=== PATIENT | female | born 1945 ===

== ENCOUNTER 2019-07-28 16:12 | Inpatient (IN) ==
[2019-07-28] MEDS ORDERED: Isovue-370 500 ML BOTTLE IVP ONE (16:43)
[2019-07-28 17:26] LABS: Basophils # 0.2 K/mcL (0.0-0.2); Basophils % 1.3 %; Eosinophils % 0.2 %; Hematocrit 36.2 % (35.3-44.9); Hemoglobin 11.4 g/dL (11.5-15.4); Immature Granulocytes % 0.8 % (0-4); Lymphocytes # 2.8 K/mcL (0.6-4.6); Lymphocytes % 20.9 %; Mean Corpuscular HGB Conc 31.5 g/dL (31.6-35.5); Mean Corpuscular Hemoglobin 29.7 pg (28.0-33.3); Mean Corpuscular Volume 94.3 fL (83.0-100.0); Mean Platelet Volume 10.4 fL (9.4-12.4); Monocytes # 0.2 K/mcL (0.0-1.3); Monocytes % 1.8 %; Neutrophils # 9.9 K/mcL (1.6-8.9); Platelet Count 265 K/mcL (140-400); Red Blood Count 3.84 M/mcL (3.82-4.97); Red Cell Distribution Width 13.8 % (11.5-14.5); White Blood Count 13.1 K/mcL (4.3-11.1)
[2019-07-28] MEDS ORDERED: *HR* FentaNYL (PF) 100 MCG/2 ML VIAL IVP ONE (17:30)
[2019-07-28] MEDS ORDERED: 0.9 % Sodium Chloride 1,000 ML IVC ONE ×2 (17:31→18:45)
--- NOTE | 2019-07-28 17:38 | Emergency Department Note ---
Disposition Clinical Impression: Pancreatitis Qualifiers: Chronicity: acute Pancreatitis type: unspecified pancreatitis type Acute pancreatitis complication: unspecified Qualified Code(s): K85.90 - Acute pancreatitis without necrosis or infection, unspecified Disposition: Still a Patient Condition: Good Referrals: Chelsy Whitten MD [Primary Care Provider] - Forms: ED Satisfaction Letter, Work/School Release Time of Disposition: 19:32 Abdominal Pain HPI - General Chief Complaint: ED Abdominal Pain Stated Complaint: abd pain,nausea Time Seen by Provider: 07/28/19 16:24 Source: patient Mode of arrival: ambulatory Limitations: no limitations Nursing Notes Reviewed: Yes Vital Signs Reviewed: Yes - History of Present Illness HPI Narrative: Patient is 74 yo woman who developed increasing abdominal pain, chest pain, nausea and vomiting after ERCP yesterday 07/27/19 for gallstone removal. She denies fever, SOB, AMS. She endorses shoulder pain that she said is the same as she had during previous endoscopies. Patient has been taking prescribed percocet, but states it is not helping. PMH significant for breast cancer (~11 years ago), hypothyroidism. She has no history of blood clots. Allergies include latex. Pain Scale: 6 - Related Data Home Medications Medication Instructions Recorded Confirmed Indomethacin 25 mg PO BID 12/10/15 07/28/19 Levothyroxine [Synthroid] 100 mcg PO DAILY 12/10/15 07/28/19 Claritin 1 tab PO DAILY 07/28/19 07/28/19 Previous Rx's Medication Instructions Recorded Ibuprofen [Motrin] 400 mg PO Q6HR PRN #15 tablet 12/10/15 Allergies Allergy/AdvReac Type Severity Reaction Status Date / Time latex Allergy Hives Verified 07/17/15 08:28 All systems ED: reviewed and negative except as stated. Cardiovascular: Reports: chest pain Gastrointestinal: Reports: abdominal pain, nausea, vomiting Musculoskeletal: Reports: other (Bilateral shoulder pain) Abdominal Pain PMH - Past Medical History Medical history: Reports: arthritis, cancer, thyroid disease Reports: recurrent abdominal pain Female Surgical History: Reports: other (ERCP) Psychiatric history: Reports: no psych history - Social History Smoking status: Never smoker Alcohol use: Reports: occasionally Drug use: Reports: none Physical Exam PE Gen: uncomfortable, AOx3 HEENT: No erythema or edema in oropharynx, no lymphadenopathy. No exudate, blood or ulceration. No crepitus on palpation plus auscultation. Pupils equal and reactive. Cardio: Regular rate and rhythm, no murmur, no peripheral edema, no cyanosis, good perfusion to all extremities. Resp: Breath sounds equal bilaterally, no wheeze or cough GI: Abdomen diffusely tender to palpation in all quadrants, soft, nondistended : No suprapubic distention or tenderness MSK: Normal ROM, no joint erythema or edema Neuro: CNI-XII intact, sensation and strength intact Psych: appropriate affect - General Limitations: no limitations General appearance: alert Course Course Narrative: DDx includes pancreatitis, [place], esophageal perforation, pneumomediastinum, gastric perforation, cholecystitis, pneumothorax. VS stable, WNL. Lipase >1800, amylase also elevated. Patient made NPO, given 2L IVF and fentanyl for pain control. Patient declined antiemetics. EKG with sinus bradycardia 49, which is similar to EKG 12/03/2015 (HR 54). Troponin negative. CXR negative for free air, effusion, widened mediastinum, pnuemothorax. WBC mildly elevated. Plan to admit patient for acute pancreatitis s/p ERCP. CT abdomen/pelvis pending. - Reevaluation(s) Reevaluation #1: Spoke with patient about elevated lipase, pending CT scan and upcoming shift change. Plan to admit; patient signed out to Dr. Mandujano. Time: 19:07 Vital Signs Temperature 98.0 F 07/28/19 16:17 Pulse Rate 53 07/28/19 16:17 Respiratory Rate 18 07/28/19 16:17 Blood Pressure 118/55 07/28/19 16:17 O2 Sat by Pulse Oximetry 97 07/28/19 16:17 Temperature 98.0 F 07/28/19 16:17 Pulse Rate 53 07/28/19 16:17 Respiratory Rate 18 07/28/19 16:17 Blood Pressure 118/55 07/28/19 16:17 O2 Sat by Pulse Oximetry 97 07/28/19 16:17 Oxygen Delivery Oxygen Delivery Room Air Abdominal Pain - MDM Narrative Medical decision making narrative: See course. - Medical Records Medical records reviewed: Yes I reviewed the patient's medical records. - Lab Data Lab results reviewed: Yes I reviewed the patient's lab results. Result diagrams: 07/28/19 17:07 07/28/19 17:07 Lab Results 07/28/19 07/28/19 07/28/19 Range/Units 17:07 17:07 17:07 WBC 13.1 H (4.3-11.1) K/mcL RBC 3.84 (3.82-4.97) M/mcL Hgb 11.4 L (11.5-15.4) g/dL Hct 36.2 (35.3-44.9) % MCV 94.3 (83.0-100.0) fL MCH 29.7 (28.0-33.3) pg MCHC 31.5 L (31.6-35.5) g/dL RDW 13.8 (11.5-14.5) % Plt Count 265 (140-400) K/mcL MPV 10.4 (9.4-12.4) fL Immature Gran % 0.8 (0-4) % Seg Neutrophils % 75.0 % Lymphocytes % 20.9 % Monocytes % 1.8 % Eosinophils % 0.2 % Basophils % 1.3 % Neutrophils # 9.9 H (1.6-8.9) K/mcL Lymphocytes # 2.8 (0.6-4.6) K/mcL Monocytes # 0.2 (0.0-1.3) K/mcL Eosinophils # 0.0 (0.0-0.6) K/mcL Basophils # 0.2 (0.0-0.2) K/mcL Sodium 141 (136-145) mEq/L Potassium 3.1 L (3.5-5.1) mEq/L Chloride 104 (98-107) mEq/L Carbon Dioxide 28 (23-29) mEq/L BUN 17 (8-23) mg/dL Creatinine 0.89 (0.60-1.20) mg/dL Est GFR ( Amer) > 60 (> 60) Est GFR (Non-Af Amer) > 60 (> 60) BUN/Creatinine Ratio 19 (6-26) Glucose 85 (70-105) mg/dL Calculated Osmolality 293 (280-300) Calcium 9.1 (8.6-10.3) mg/dL Total Bilirubin 0.5 (0.3-1.0) mg/dL AST 138 H (13-39) Units/L ALT 169 H (7-52) Units/L Alkaline Phosphatase 98 (34-104) Units/L Troponin I < 0.03 (< 0.04) ng/mL Serum Total Protein 6.1 L (6.4-8.9) g/dL Albumin 3.8 (3.5-5.7) g/dL Globulin 2.3 L (2.4-3.5) g/dL Albumin/Globulin Ratio 1.7 (1.1-2.2) Amylase (29-103) Units/L Lipase > 1800 H (11-82) Units/L / Range/Units 17:07 WBC (4.3-11.1) K/mcL RBC (3.82-4.97) M/mcL Hgb (11.5-15.4) g/dL Hct (35.3-44.9) % MCV (83.0-100.0) fL MCH (28.0-33.3) pg MCHC (31.6-35.5) g/dL RDW (11.5-14.5) % Plt Count (140-400) K/mcL MPV (9.4-12.4) fL Immature Gran % (0-4) % Seg Neutrophils % % Lymphocytes % % Monocytes % % Eosinophils % % Basophils % % Neutrophils # (1.6-8.9) K/mcL Lymphocytes # (0.6-4.6) K/mcL Monocytes # (0.0-1.3) K/mcL Eosinophils # (0.0-0.6) K/mcL Basophils # (0.0-0.2) K/mcL Sodium (136-145) mEq/L Potassium (3.5-5.1) mEq/L Chloride (98-107) mEq/L Carbon Dioxide (23-29) mEq/L BUN (8-23) mg/dL Creatinine (0.60-1.20) mg/dL Est GFR ( Amer) (> 60) Est GFR (Non-Af Amer) (> 60) BUN/Creatinine Ratio (6-26) Glucose (70-105) mg/dL Calculated Osmolality (280-300) Calcium (8.6-10.3) mg/dL Total Bilirubin (0.3-1.0) mg/dL AST (13-39) Units/L ALT (7-52) Units/L Alkaline Phosphatase (34-104) Units/L Troponin I (< 0.04) ng/mL Serum Total Protein (6.4-8.9) g/dL Albumin (3.5-5.7) g/dL Globulin (2.4-3.5) g/dL Albumin/Globulin Ratio (1.1-2.2) Amylase 1823 H (29-103) Units/L Lipase (11-82) Units/L - EKG Data EKG attestation: Yes I reviewed and interpreted this EKG. EKG shows normal: sinus rhythm Rate: bradycardia Interpretation: no acute changes, unchanged when compared to prior tracing (date) (12/03/15 EKG) Attestation Statement - Attestation Attestation: I, Lamin Arellano, examined this patient and my medical decision-making was reviewed with the AUTO STRIPER/PA/Advanced Practice Nurse/Resident Physician. I agree with the documented findings, disposition and treatment plan as described except to the extent set forth below. 74 yo female presents emergency Department with concerns of abdominal pain, nausea, vomiting. Patient had an ERCP for removal of common bile duct stones within the past 2-3 days. Patient has since had increasing nausea, vomiting and epigastric abdominal pain. She also states that she had dilation of the esophagus at the same time. Abdomen is tender to palpation in the generalized abdomen with mild guarding. Patient has an elevated lipase on laboratory testing. This is likely pancreatitis associated with her ERCP. CT of the abdomen and pelvis is still pending for further evaluation of possible perforation. Patient care was transferred to Dr. Mandujano pending imaging, reevaluation and disposition.
[2019-07-28 18:18] LABS: Alanine Aminotransferase 169 Units/L (7-52); Albumin 3.8 g/dL (3.5-5.7); Albumin/Globulin Ratio 1.7 (1.1-2.2); Alkaline Phosphatase 98 Units/L (34-104); Aspartate Amino Transferase 138 Units/L (13-39); BUN/Creatinine Ratio 19 (6-26); Bilirubin,Total 0.5 mg/dL (0.3-1.0); Blood Urea Nitrogen 17 mg/dL (8-23); Calcium 9.1 mg/dL (8.6-10.3); Carbon Dioxide 28 mEq/L (23-29); Chloride 104 mEq/L (98-107); Globulin 2.3 g/dL (2.4-3.5); Glucose 85 mg/dL (70-105); Lipase > 1800 Units/L (11-82); Osmolality,Calculated 293 (280-300); Potassium 3.1 mEq/L (3.5-5.1); Sodium 141 mEq/L (136-145); Total Protein 6.1 g/dL (6.4-8.9); eGFR For African Americans > 60 (> 60); eGFR For Non-African Americans > 60 (> 60)
--- NOTE | 2019-07-28 20:43 | Emergency Department Note ---
Disposition Clinical Impression: Pancreatitis Qualifiers: Chronicity: acute Pancreatitis type: unspecified pancreatitis type Acute pancreatitis complication: unspecified Qualified Code(s): K85.90 - Acute pancreatitis without necrosis or infection, unspecified Disposition: Admitted As Inpatient Condition: Fair Referrals: Chelsy Whitten MD [Primary Care Provider] - Forms: ED Satisfaction Letter, Work/School Release Time of Disposition: 21:08 General Adult HPI - General Chief complaint: ED Abdominal Pain Stated complaint: abd pain,nausea Time Seen by Provider: 07/28/19 16:24 Source: patient Mode of arrival: ambulatory Limitations: no limitations - History of Present Illness Pain Scale: 6 - Related Data Home Medications Medication Instructions Recorded Confirmed Indomethacin 25 mg PO BID 12/10/15 07/28/19 Levothyroxine [Synthroid] 100 mcg PO DAILY 12/10/15 07/28/19 Claritin 1 tab PO DAILY 07/28/19 07/28/19 Previous Rx's Medication Instructions Recorded Ibuprofen [Motrin] 400 mg PO Q6HR PRN #15 tablet 12/10/15 Allergies Allergy/AdvReac Type Severity Reaction Status Date / Time latex Allergy Hives Verified 07/17/15 08:28 Cardiovascular: Reports: chest pain Gastrointestinal: Reports: abdominal pain, nausea, vomiting Musculoskeletal: Reports: other (Bilateral shoulder pain) Past Medical History - Past Medical History Medical history: Reports: arthritis, cancer, thyroid disease Surgical history: Reports: breast surgery, cataract Psychiatric history: Reports: no psych history - Social History Smoking Status: Never smoker Smokeless Tobacco Status: No Alcohol use: Reports: occasionally Drug use: Reports: none Physical Exam - General Limitations: no limitations General appearance: alert Course Vital Signs Temperature 98.0 F 07/28/19 16:17 Pulse Rate 53 07/28/19 16:17 Respiratory Rate 18 07/28/19 16:17 Blood Pressure 118/55 07/28/19 16:17 O2 Sat by Pulse Oximetry 97 07/28/19 16:17 Temperature 98.0 F 07/28/19 16:17 Pulse Rate 53 07/28/19 16:17 Respiratory Rate 18 07/28/19 16:17 Blood Pressure 118/55 07/28/19 16:17 O2 Sat by Pulse Oximetry 97 07/28/19 16:17 Oxygen Delivery Oxygen Delivery Room Air Medical Decision Making - MDM Narrative Medical decision making narrative: Patient was turned over to me by Dr. Arellano. Patient is resting comfortably here in the emergency room at evaluation at 2039. The patient at this point in time has minimal tenderness in the epigastric area on examination. No other masses or guarding. I do agree to the note that was placed prior to this. The odilon preciado's CAT scan showed evidence of pancreatitis, acute cholecystitis. However given the patient has pancreatitis, there could be inflammation around the gallbladder causing the acute cholecystitis. The patient at this point time did have IV antibiotics given the patient however is not septic. The patient at this point in time did have case discussed with hospitalist and the patient is going to be admitted. Hospitalist wanted me to contact general surgery. The patient has seen Dr. cramer in the past, her surgeon that she was supposed to have take out her gallbladder does not come here to [place]. Final impression Acute pancreatitis - Lab Data Result diagrams: 07/28/19 17:07 07/28/19 17:07 Lab Results 07/28/19 07/28/19 07/28/19 Range/Units 17:07 17:07 17:07 WBC 13.1 H (4.3-11.1) K/mcL RBC 3.84 (3.82-4.97) M/mcL Hgb 11.4 L (11.5-15.4) g/dL Hct 36.2 (35.3-44.9) % MCV 94.3 (83.0-100.0) fL MCH 29.7 (28.0-33.3) pg MCHC 31.5 L (31.6-35.5) g/dL RDW 13.8 (11.5-14.5) % Plt Count 265 (140-400) K/mcL MPV 10.4 (9.4-12.4) fL Immature Gran % 0.8 (0-4) % Seg Neutrophils % 75.0 % Lymphocytes % 20.9 % Monocytes % 1.8 % Eosinophils % 0.2 % Basophils % 1.3 % Neutrophils # 9.9 H (1.6-8.9) K/mcL Lymphocytes # 2.8 (0.6-4.6) K/mcL Monocytes # 0.2 (0.0-1.3) K/mcL Eosinophils # 0.0 (0.0-0.6) K/mcL Basophils # 0.2 (0.0-0.2) K/mcL Sodium 141 (136-145) mEq/L Potassium 3.1 L (3.5-5.1) mEq/L Chloride 104 (98-107) mEq/L Carbon Dioxide 28 (23-29) mEq/L BUN 17 (8-23) mg/dL Creatinine 0.89 (0.60-1.20) mg/dL Est GFR ( Amer) > 60 (> 60) Est GFR (Non-Af Amer) > 60 (> 60) BUN/Creatinine Ratio 19 (6-26) Glucose 85 (70-105) mg/dL Calculated Osmolality 293 (280-300) Calcium 9.1 (8.6-10.3) mg/dL Total Bilirubin 0.5 (0.3-1.0) mg/dL AST 138 H (13-39) Units/L ALT 169 H (7-52) Units/L Alkaline Phosphatase 98 (34-104) Units/L Troponin I < 0.03 (< 0.04) ng/mL Serum Total Protein 6.1 L (6.4-8.9) g/dL Albumin 3.8 (3.5-5.7) g/dL Globulin 2.3 L (2.4-3.5) g/dL Albumin/Globulin Ratio 1.7 (1.1-2.2) Amylase (29-103) Units/L Lipase > 1800 H (11-82) Units/L 07/28/19 Range/Units 17:07 WBC (4.3-11.1) K/mcL RBC (3.82-4.97) M/mcL Hgb (11.5-15.4) g/dL Hct (35.3-44.9) % MCV (83.0-100.0) fL MCH (28.0-33.3) pg MCHC (31.6-35.5) g/dL RDW (11.5-14.5) % Plt Count (140-400) K/mcL MPV (9.4-12.4) fL Immature Gran % (0-4) % Seg Neutrophils % % Lymphocytes % % Monocytes % % Eosinophils % % Basophils % % Neutrophils # (1.6-8.9) K/mcL Lymphocytes # (0.6-4.6) K/mcL Monocytes # (0.0-1.3) K/mcL Eosinophils # (0.0-0.6) K/mcL Basophils # (0.0-0.2) K/mcL Sodium (136-145) mEq/L Potassium (3.5-5.1) mEq/L Chloride (98-107) mEq/L Carbon Dioxide (23-29) mEq/L BUN (8-23) mg/dL Creatinine (0.60-1.20) mg/dL Est GFR ( Amer) (> 60) Est GFR (Non-Af Amer) (> 60) BUN/Creatinine Ratio (6-26) Glucose (70-105) mg/dL Calculated Osmolality (280-300) Calcium (8.6-10.3) mg/dL Total Bilirubin (0.3-1.0) mg/dL AST (13-39) Units/L ALT (7-52) Units/L Alkaline Phosphatase (34-104) Units/L Troponin I (< 0.04) ng/mL Serum Total Protein (6.4-8.9) g/dL Albumin (3.5-5.7) g/dL Globulin (2.4-3.5) g/dL Albumin/Globulin Ratio (1.1-2.2) Amylase 1823 H (29-103) Units/L Lipase (11-82) Units/L
[2019-07-28] MEDS ORDERED: Ertapenem 1,000 MG in 0.9 % Sodium Chloride Mini Bag 100 ML IVPB SCH (21:00)
[2019-07-28] MEDS ORDERED: Ondansetron 4 MG/2 ML VIAL IVP PRN (21:18)
[2019-07-28] MEDS ORDERED: traMADol 50 MG TABLET PO PRN (21:19)
[2019-07-28] MEDS ORDERED: *HR* OxyCODONE Immed Rel 5 MG TABLET PO PRN (21:19)
[2019-07-28] MEDS ORDERED: Acetaminophen 325 MG TABLET PO PRN (21:19)
[2019-07-28] MEDS ORDERED: GI Cocktail 40 ML EACH PO ONE (21:19)
[2019-07-28] MEDS ORDERED: Ketorolac 30 MG/ML VIAL IVP PRN (21:19)
[2019-07-28] MEDS ORDERED: Piperacillin/Tazobactam 3.375 GM in 0.9 % Sodium Chloride Mini Bag 100 ML IVPB ONE (22:00)
[2019-07-28] MEDS ORDERED: Potassium Chloride Elixir 20 MEQ/15 ML UDC PO ONE (22:09)
--- NOTE | 2019-07-28 22:09 | Internal Med History&Physical ---
Date of Encounter: 07/28/19 Time of Encounter: 22:08 Internal Medicine - H&P: HPI Chief complaint: abdominal pain Admitted From: Home Plans for Post Hospital Care: Home History of present illness: Kristan Khan is a 74 year old woman who was seen by the GI service with the initial complaint of dysphagia but also had complaints of RUQ pain and seen to have choledocolithiasis on imaging. She underwent an ERCP yesterday where a benign-appearing, intrinsic Schatzki ring was found that the GE junction causing stenosis; choledocolithiasis was found and a 6mm stone extracted with biliary sphincterotomy and CBD dilatation performed. She says after the procedure she had a significant amount of nausea and discomfort but when she went home, she developed diffuse abdominal pain. She continued to feel nauseated and had multiple vomiting episodes. She says the pain severity was high enough to consider coming to the ER last night but decided to take some pain medications that were prescribed to her without any relief noted. She says today the pain, nausea and vomiting continued, stating that the pain radiated into her back and up her chest. CT scan was done and showed a distended gallbladder with a regular gallbladder wall thickening, CBD and pancreatic duct dilation and peripancreatic fat stranding. Lab work showed her leukocyte count of 13.1, AST 138, ALP 169, amylase and lipase >1800. She is admitted for further care. Vitals: Reviewed General: Well-developed woman lying in bed in NAD Skin: Warm and supple. HEENT: Moist mucous membranes. No conjunctivae pallor. Neck: No lymphadenopathy. No JVD. No carotid bruits. No palpable thyroid. Chest: Normal thoracic expansion. Normal breath sounds. Clear to auscultation. Heart: Normal S1 & S2; rhythmic. No rubs or murmurs. Abdomen: Non-distended, soft and mildly tender to palpation in her RUQ and epigastrium. No peritoneal reaction. Extremities: No clubbing, cyanosis or edema. No calf tenderness. Normal distal pulses. Neurological: Awake, alert and oriented to person, place and time. No focal deficits. Psych: Affect appropriate. Assessment/Plan 1. Acute pancreatitis: Seemingly post-ERCP however gallbladder pancreatitis is also a differential perhaps from a dislodged stone and now causing the p ancreatic duct dilation. Will keep her NPO, start PPI BID and IV hydration. GI consult requested. 2. Suspected acute cholecystitis: The gallbladder findings on CT are rather notable with significant distension and wall edema. Will get a dedicated ultrasound for further review as she may benefit from a cholecystectomy at some point in the near future. In the interim, will start her on empiric antibiotics given the findings with leukocytosis until proven otherwise. Of note, the leukocytosis could also be reactive from the procedure she underwent yesterday and her current condition and not necessarily infection therefore continued clinical monitoring is warranted. 3. LFT abnormalities: Seemingly hepatocellular pattern and not cholestatic. Likely secondary to the above. Will monitor. 4. 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 Past Med Surg Social Fam HX - Past Medical History Medical history: arthritis, cancer, thyroid disease Additional medical history: L BREAST CA. HIATAL HERNIA. SALLY CATARACTS. HEMORRHOIDS Psychiatric history: no psych history - Past Surgical History Surgical History: breast surgery, cataract Additional surgical history: HEMORRHOIDECTOMY - back surgery 2014 - thyroid - colonoscopy. L BREAST LUMPECTOMY 2006. SALLY CATARACT SX - Social History Smoking Status: Never smoker Smokeless Tobacco Status: No Alcohol use: occasionally Drug use: none Internal Medicine - H&P: Meds Indomethacin 25 mg PO BID PRN 12/10/15 [History] Biotin 1 mg PO DAILY 07/28/19 [History] Levothyroxine Sodium [Levoxyl] 175 mcg PO DAILY 07/28/19 [History] Loratadine [Allergy Relief] 10 mg PO DAILY 07/28/19 [History] Omeprazole [PriLOSEC] 40 mg PO DAILY 07/28/19 [History] Allergy/AdvReac Type Severity Reaction Status Date / Time latex Allergy Hives Verified 07/17/15 08:28 All Systems PM: A 10-system review of systems was performed and is negative for pertinent findings except as documented above in the HPI. Family history reviewed and found non-contributory. - Constitutional Vitals: Temp Pulse Resp BP Pulse Ox 98.0 F 53 18 118/55 97 07/28/19 16:17 07/28/19 16:17 07/28/19 16:17 07/28/19 16:17 07/28/19 16:17 Exam: . Internal Med - H&P Results - Labs CBC & Chem 7: 07/28/19 17:07 07/28/19 17:07 Labs: Short CBC 07/28/19 Range/Units 17:07 WBC 13.1 H (4.3-11.1) K/mcL Hgb 11.4 L (11.5-15.4) g/dL Hct 36.2 (35.3-44.9) % Plt Count 265 (140-400) K/mcL Neutrophils # 9.9 H (1.6-8.9) K/mcL BMP 07/28/19 17:07 Sodium 141 Potassium 3.1 L Chloride 104 Carbon Dioxide 28 BUN 17 Creatinine 0.89 Glucose 85 Calcium 9.1 Cardiac Enzymes 07/28/19 Range/Units 17:07 Troponin I < 0.03 (< 0.04) ng/mL Liver Function 07/28/19 Range/Units 17:07 Total Bilirubin 0.5 (0.3-1.0) mg/dL AST 138 H (13-39) Units/L ALT 169 H (7-52) Units/L Alkaline Phosphatase 98 (34-104) Units/L Albumin 3.8 (3.5-5.7) g/dL - Impressions ITS Impressions Chest X-Ray 07/28/19 16:38 IMPRESSION: No acute cardiopulmonary process. D/ / 07/28/2019 17:24:52 Benigno Maldonado MD / sapphire brown Interpreting Provider: Benigno Maldonado MD Abdomen/Pelvis CT 07/28/19 16:43 IMPRESSION: 1. Distended gallbladder with irregular gallbladder wall thickening. Consider acute cholecystitis. The common bile duct and pancreatic duct are dilated. There is diffuse periportal edema. Surgical consultation is suggested. Right upper quadrant ultrasound may be helpful for further evaluation. 2. Peripancreatic fat stranding, consider pancreatitis. 3. Small amount of ascites. 4. Wall thickening of the ascending colon. Follow-up colonoscopy is suggested to exclude focal lesion. D/ / 07/28/2019 20:20:52 Alexandr Stoll MD / lance Interpreting Provider: Alexandr Stoll MD - Time Spent With Patient Total time spent is greater than 50% in coordination of care (as documented) at patient's floor/unit and/or counseling patient:
[2019-07-29] MEDS: Ringers Solution, Lactated 1,000 ML IVC SCH ×2 (00:23→12:30)
[2019-07-29 04:23] LABS: Basophils # 0.2 K/mcL (0.0-0.2); Basophils % 1.3 %; Eosinophils % 0.1 %; Hematocrit 33.7 % (35.3-44.9); Hemoglobin 10.6 g/dL (11.5-15.4); Immature Granulocytes % 0.7 % (0-4); Lymphocytes # 2.2 K/mcL (0.6-4.6); Lymphocytes % 19.6 %; Mean Corpuscular HGB Conc 31.5 g/dL (31.6-35.5); Mean Corpuscular Hemoglobin 29.5 pg (28.0-33.3); Mean Corpuscular Volume 93.9 fL (83.0-100.0); Mean Platelet Volume 10.4 fL (9.4-12.4); Monocytes # 0.3 K/mcL (0.0-1.3); Monocytes % 2.2 %; Neutrophils # 8.6 K/mcL (1.6-8.9); Platelet Count 229 K/mcL (140-400); Red Blood Count 3.59 M/mcL (3.82-4.97); Red Cell Distribution Width 13.9 % (11.5-14.5); Segmented Neutrophils % 76.1 %; White Blood Count 11.3 K/mcL (4.3-11.1)
[2019-07-29 04:45] LABS: Alanine Aminotransferase 125 Units/L (7-52); Albumin 3.3 g/dL (3.5-5.7); Albumin/Globulin Ratio 1.5 (1.1-2.2); Alkaline Phosphatase 88 Units/L (34-104); Aspartate Amino Transferase 83 Units/L (13-39); BUN/Creatinine Ratio 18 (6-26); Bilirubin,Direct 0.1 mg/dL (0.0-0.2); Bilirubin,Indirect 0.4 mg/dL (0.0-1.2); Bilirubin,Total 0.5 mg/dL (0.3-1.0); Blood Urea Nitrogen 14 mg/dL (8-23); Calcium 8.5 mg/dL (8.6-10.3); Carbon Dioxide 23 mEq/L (23-29); Chloride 110 mEq/L (98-107); Globulin 2.2 g/dL (2.4-3.5); Glucose 99 mg/dL (70-105); Osmolality,Calculated 287 (280-300); Potassium 3.9 mEq/L (3.5-5.1); Sodium 138 mEq/L (136-145); Total Protein 5.5 g/dL (6.4-8.9); eGFR For African Americans > 60 (> 60); eGFR For Non-African Americans > 60 (> 60)
[2019-07-29] MEDS: Piperacillin/Tazobactam 3.375 GM in 0.9 % Sodium Chloride Mini Bag 100 ML IVPB SCH ×3 (05:28→21:23)
[2019-07-29] MEDS: Pantoprazole 40 MG VIAL IVP SCH ×2 (05:34→18:19)
[2019-07-29] MEDS: Loratadine 10 MG TABLET PO SCH (09:52)
--- NOTE | 2019-07-29 09:58 | Internal Med Progress Note ---
Hospitalist Progress Note - Encounter Date of Encounter: 07/29/19 Time of Encounter: 08:00 - Subjective Interval History: No acute events overnight - Exam Vitals: Temp Pulse Resp BP Pulse Ox 98.5 F 58 15 135/56 96 07/29/19 06:42 07/29/19 06:42 07/29/19 06:42 07/29/19 06:42 07/29/19 06:42 Exam: General appearance: Present: A&O X 3, no acute distress Head exam: Present: normocephalic Respiratory exam: Present: CTAB. Absent: accessory muscle use, rales, rhonchi, wheezes Cardiovascular exam: Present: RRR, +S1, +S2. Absent: diastolic murmur, gallop, rubs, systolic murmur GI/Abdominal exam: Soft, NT, ND, +BS Extremities exam: Absent: pedal edema Neurological exam: Alert to person and place - Assessment and Plan (1) Acute cholecystitis Current Visit: Yes Status: Acute Assessment and Plan: Pt comes in with diffuse abdominal pain post ERCP Ct abdomen shows irregular gall bladder wall thickening and ultrasound confirms finding suspicious for cholecystitis Surgery consulted. NPO for cholecystectomy (2) Pancreatitis Current Visit: Yes Status: Acute Assessment and Plan: patient has elevated lipase and abdominal pain post ERCP NPO, IV fluids, pain control. Advance diet as tolerated (3) Choledocholithiasis Current Visit: Yes Status: Acute Assessment and Plan: s/p ERCP on 07/27. CT showed dilated common bile duct and pancreatic duct Per GI no acute intervention (4) DVT prophylaxis Current Visit: Yes Status: Acute Assessment and Plan: Heparin sc - Time Spent with Patient Total time spent is greater than 50% in coordination of care (as documented) at patient's floor/unit and/or counseling patient: Internal Medicine: Result - Labs CBC & Chem 7: 07/29/19 04:05 07/29/19 04:05 Labs: Short CBC 07/28/19 07/29/19 Range/Units 17:07 04:05 WBC 13.1 H 11.3 H (4.3-11.1) K/mcL Hgb 11.4 L 10.6 L (11.5-15.4) g/dL Hct 36.2 33.7 L (35.3-44.9) % Plt Count 265 229 (140-400) K/mcL Neutrophils # 9.9 H 8.6 (1.6-8.9) K/mcL BMP 07/28/19 07/29/19 17:07 04:05 Sodium 141 138 Potassium 3.1 L 3.9 D Chloride 104 110 H Carbon Dioxide 28 23 BUN 17 14 Creatinine 0.89 0.80 Glucose 85 99 Calcium 9.1 8.5 L Cardiac Enzymes 07/28/19 Range/Units 17:07 Troponin I < 0.03 (< 0.04) ng/mL Liver Function 07/28/19 07/29/19 Range/Units 17:07 04:05 Total Bilirubin 0.5 0.5 (0.3-1.0) mg/dL Direct Bilirubin 0.1 (0.0-0.2) mg/dL AST 138 H 83 H (13-39) Units/L ALT 169 H 125 H (7-52) Units/L Alkaline Phosphatase 98 88 (34-104) Units/L Albumin 3.8 3.3 L (3.5-5.7) g/dL - Impressions Impressions Chest X-Ray 07/28/19 16:38 IMPRESSION: No acute cardiopulmonary process. D/ / 07/28/2019 17:24:52 Benigno Maldonado MD / lance Interpreting Provider: Benigno Maldonado MD Abdomen/Pelvis CT 07/28/19 16:43 IMPRESSION: 1. Distended gallbladder with irregular gallbladder wall thickening. Consider acute cholecystitis. The common bile duct and pancreatic duct are dilated. There is diffuse periportal edema. Surgical consultation is suggested. Right upper quadrant ultrasound may be helpful for further evaluation. 2. Peripancreatic fat stranding, consider pancreatitis. 3. Small amount of ascites. 4. Wall thickening of the ascending colon. Follow-up colonoscopy is suggested to exclude focal lesion. D/ / 07/28/2019 20:20:52 Alexandr Stoll MD / lance Interpreting Provider: Alexandr Stoll MD Gallbladder Ultrasound 07/29/19 08:00 IMPRESSION: Thickened edematous wall with small amount of fluid and associated stones within the common bile duct. Degree of distention appears less than CT. Gallbladder wall appears somewhat irregular in appearance. Findings concerning for acute cholecystitis. D/ / 07/29/2019 08:46:11 Munir Johnston MD / [email or web address] Interpreting Provider: Munir Johnston MD Consult Discharge Plan - Plan Referrals: Chelsy Whitten MD [Primary Care Provider] - (2) Pancreatitis Qualifiers: Chronicity: acute Pancreatitis type: other Acute pancreatitis complication: unspecified Qualified Code(s): K85.80 - Other acute pancreatitis without necrosis or infection
--- NOTE | 2019-07-29 10:08 | AcuteCare Surgery Consult Note ---
Date of Encounter: 07/29/19 Time of Encounter: 10:05 Assessment and Plan (1) Acute cholecystitis Current Visit: Yes Status: Acute Maintain NPO/IVF for GI rest. Continue IV abx. Recommend Lap catina when GB inflammation has defervesced. (2) Pancreatitis Current Visit: Yes Status: Acute post-ERCP for choledocholithiasis. See above. Qualifiers: Qualified Code(s): K85.80 - Other acute pancreatitis without necrosis or infection History of Present Illness Consult date: 07/29/19 Reason for consult: abdominal pain Requesting physician: Frances Gibbons History of present illness: This 77 y/o female pt presents to [facility] c/o severe RUQ and epigastric abdominal pain. Pt states that she underwent ERCP a couple of days ago for removal of stone in CBD. Pt reports pain is severe and unrelenting. Pt c/o LUQ pain as well. Pt reports pain radiates into back. Pt reports intractable nausea and vomiting. Pt denies changes in BM. Pt denies CP or SOB. Pt denies fever. Past Med Surg Social Fam HX - Past Medical History Medical history: arthritis, cancer, thyroid disease Additional medical history: L BREAST CA. HIATAL HERNIA. SLALY CATARACTS. HEMORRHOIDS Psychiatric history: no psych history - Past Surgical History Surgical History: breast surgery, cataract Additional surgical history: HEMORRHOIDECTOMY - back surgery 2014 - thyroid - colonoscopy. L BREAST LUMPECTOMY 2006. SALLY CATARACT SX - Social History Smoking Status: Never smoker Smokeless Tobacco Status: No Alcohol use: occasionally Drug use: none - Family History Mother Living Status: Cause of : alzhemiers Hx Family Cardiac Disorders: Yes (Angina mother) Hx Family Respiratory Disorders: No Hx Family Cancer: Yes (lung father) Hx Family GI Disorders: No Hx Family Genitourinary Disorders: No Hx Family Endocrine Disorder: No Hx Family Musculoskeletal Disorders: No Hx Family Neuromuscular Disorders: No Hx Family Neurologic Disorders: No Hx Family HEENT Disorders: No Hx Family Autoimmune Disorders: No Hx Family Psychosocial Disorders: No Medications and Allergies Indomethacin 25 mg PO BID PRN 12/10/15 [History] Biotin 1 mg PO DAILY 07/28/19 [History] Levothyroxine Sodium [Levoxyl] 175 mcg PO DAILY 07/28/19 [History] Loratadine [Allergy Relief] 10 mg PO DAILY 07/28/19 [History] Omeprazole [PriLOSEC] 40 mg PO DAILY 07/28/19 [History] Allergy/AdvReac Type Severity Reaction Status Date / Time diphenhydramine Allergy Hives Verified 07/29/19 00:43 [From Benadryl] latex Allergy Hives Verified 07/17/15 08:28 adhesive tape AdvReac Rash Verified 07/29/19 00:43 Review of Systems All systems PM: The remainder of the systems were reviewed and are negative - Constitutional fatigue, no anorexia, no chills, no fever(s), no night sweats, no weakness - EENT Nose, mouth and throat: no dizziness, no dysphagia, no nasal congestion, no nasal discharge, no sinus pain, no sinus pressure, no sore throat - Cardiovascular no chest pain, no diaphoresis, no dyspnea, no edema - Respiratory no cough, no dyspnea, no wheezing - Gastrointestinal abdominal pain, bloating, heartburn, nausea, no constipation, no diarrhea, no vomiting - Genitourinary Genitourinary: no dysuria, no flank pain, no urinary frequency - Musculoskeletal back pain, no joint swelling, no limited range of motion, no neck pain - Integumentary no dry skin, no pruritus, no rash, no wounds, no jaundice - Neurological no confusion, no dizziness, no focal weakness, no headache(s), no weakness - Psychiatric no anxiety, no depression - Endocrine no fatigue - Hematologic/Lymphatic no easy bleeding, no easy bruising General Surgery Exam Initial Vital Signs Temp Pulse Resp BP Pulse Ox 98.0 F 53 18 118/55 97 07/28/19 16:17 07/28/19 16:17 07/28/19 16:17 07/28/19 16:17 07/28/19 16:17 - General physical appearance well nourished, no distress, moderate pain. negative: jaundice - Eyes PERRL, normal ocular movement. negative: icteric - ENT no congestion, dry mucosa. negative: nasal discharge - Neck no masses, trachea midline, no lymphadectomy, no venous distension - Respiratory normal respiratory effort, clear to auscultation - Cardiovascular Cardiovascular exam: Present: RRR. Absent: JVD - Abdomen Abdomen general surgery: Present: bowel sounds present, distended, tender, guarding. Absent: rebound, rigid Abdominal Tenderness: Present: epigastic, RUQ, LUQ - Genitourinary Present: normal external genitalia - Integumentary Integumentary general surgery: Present: warm and dry - Neurologic Present: CN 2-12 grossly intact, normal coordination - Musculoskeletal Present: normal posture - Psychiatric Psychiatric general surgery: Present: A&Ox3, appropriate Exam Initial Vital Signs Temp Pulse Resp BP Pulse Ox 98.0 F 53 18 118/55 97 07/28/19 16:17 07/28/19 16:17 07/28/19 16:17 07/28/19 16:17 07/28/19 16:17 Results - Labs 07/29/19 04:05 07/29/19 04:05 Abnormal lab results WBC 11.3 K/mcL (4.3-11.1) H 07/29/19 04:05 RBC 3.59 M/mcL (3.82-4.97) L 07/29/19 04:05 Hgb 10.6 g/dL (11.5-15.4) L 07/29/19 04:05 Hct 33.7 % (35.3-44.9) L 07/29/19 04:05 MCHC 31.5 g/dL (31.6-35.5) L 07/29/19 04:05 Neutrophils # 9.9 K/mcL (1.6-8.9) H 07/28/19 17:07 Potassium 3.1 mEq/L (3.5-5.1) L 07/28/19 17:07 Chloride 110 mEq/L (98-107) H 07/29/19 04:05 Calcium 8.5 mg/dL (8.6-10.3) L 07/29/19 04:05 AST 83 Units/L (13-39) H 07/29/19 04:05 ALT 125 Units/L (7-52) H 07/29/19 04:05 Serum Total Protein 5.5 g/dL (6.4-8.9) L 07/29/19 04:05 Albumin 3.3 g/dL (3.5-5.7) L 07/29/19 04:05 Globulin 2.2 g/dL (2.4-3.5) L 07/29/19 04:05 Amylase 1823 Units/L (29-103) H 07/28/19 17:07 Lipase > 1800 Units/L (11-82) H 07/28/19 17:07 Diabetes panel 07/28/19 07/29/19 Range/Units 17:07 04:05 Sodium 141 138 (136-145) mEq/L Potassium 3.1 L 3.9 D (3.5-5.1) mEq/L Chloride 104 110 H (98-107) mEq/L Carbon Dioxide 28 23 (23-29) mEq/L BUN 17 14 (8-23) mg/dL Creatinine 0.89 0.80 (0.60-1.20) mg/dL Glucose 85 99 (70-105) mg/dL Calcium 9.1 8.5 L (8.6-10.3) mg/dL AST 138 H 83 H (13-39) Units/L ALT 169 H 125 H (7-52) Units/L Alkaline Phosphatase 98 88 (34-104) Units/L Albumin 3.8 3.3 L (3.5-5.7) g/dL Calcium panel 07/28/19 07/29/19 Range/Units 17:07 04:05 Calcium 9.1 8.5 L (8.6-10.3) mg/dL Albumin 3.8 3.3 L (3.5-5.7) g/dL Pituitary panel 07/28/19 07/29/19 Range/Units 17:07 04:05 Sodium 141 138 (136-145) mEq/L Potassium 3.1 L 3.9 D (3.5-5.1) mEq/L Chloride 104 110 H (98-107) mEq/L Carbon Dioxide 28 23 (23-29) mEq/L BUN 17 14 (8-23) mg/dL Creatinine 0.89 0.80 (0.60-1.20) mg/dL Glucose 85 99 (70-105) mg/dL Calcium 9.1 8.5 L (8.6-10.3) mg/dL Adrenal panel 07/28/19 07/29/19 Range/Units 17:07 04:05 Sodium 141 138 (136-145) mEq/L Potassium 3.1 L 3.9 D (3.5-5.1) mEq/L Chloride 104 110 H (98-107) mEq/L Carbon Dioxide 28 23 (23-29) mEq/L BUN 17 14 (8-23) mg/dL Creatinine 0.89 0.80 (0.60-1.20) mg/dL Glucose 85 99 (70-105) mg/dL Calcium 9.1 8.5 L (8.6-10.3) mg/dL Total Bilirubin 0.5 0.5 (0.3-1.0) mg/dL AST 138 H 83 H (13-39) Units/L ALT 169 H 125 H (7-52) Units/L Alkaline Phosphatase 98 88 (34-104) Units/L Albumin 3.8 3.3 L (3.5-5.7) g/dL All other labs normal. - Imaging US - abdomen: image reviewed (findings c/w cholecystitis) Consult Discharge Plan - Plan Referrals: Chelsy Whitten MD [Primary Care Provider] -
--- NOTE | 2019-07-29 10:45 | Gastroenterology Consult Note ---
<Pineda Wylie Abran - Last Filed: 07/29/19 10:43> Date of Encounter: 07/29/19 Time of Encounter: 09:15 - Assessment and plan (1) Pancreatitis Current Visit: Yes Status: Acute Assessment and plan: Post ERCP pancreatitis. ERCP with filling defect noted on choangiogram, choledocholithiasis found, and 6mm stone removed with balloon extraction and sphincterotomy, CBD was successfully dilated. On admission TB 0.5, AST 138, ALT 169, AP 98, lipase >1800, amylase 1823. Today TB 0.5, AST 83, ALT 125, AP 88. Check lipase. Continue anti-emetics and pain control. Restart IV fluids at 125 ml/hr. Keep NPO for now. If lipase normal, may start clear liquid diet. No indication for repeat ERCP. Qualifiers: Chronicity: acute Pancreatitis type: other Acute pancreatitis complication: unspecified Qualified Code(s): K85.80 - Other acute pancreatitis without necrosis or infection (2) Acute cholecystitis Current Visit: Yes Status: Acute Assessment and plan: CT A/P showed distended gallbladder with irregular gallbladder wall thickening, common bile duct and pancreatic duct dilation, diffuse periportal edema, peripancreatic fat stranding, wall thickening of the ascending colon. Recommend consulting Surgery for cholecystectomy. - Time Spent With Patient Total time spent is greater than 50% in coordination of care (as documented) at patient's floor/unit and/or counseling patient: GI History of Present Illness - Data of Consult Patient: known to practice within the last 3 years Consult date: 07/29/19 Requesting Physician: Satnam Montero MD - Consult Narrative Reason for consult: Post ERCP pancreatitis History of present illness: Ms. Khan is a 74 year old female with PMHx of breast cancer, thyroid disease who presented to the ED with complaints of abdominal pain following ERCP. She was seen by Dr. Collins for dysphagia and CBD dilation to 1.1 cm and one 5mm stone in the duct. She underwent EGD and ERCP 07/27/2019 which showed benign esophageal stricture, small hiatal hernia, filling defect noted on choangiogram, ch oledocholithiasis found, and 6mm stone removed with balloon extraction and sphincterotomy, CBD was successfully dilated. She reports having pain and nausea following the procedure but was given medication for her symptoms which did improve. Patient called our office on 07/28 complaining of 10/10 pain overnight and vomiting several times. Patient states she was to have her gallbladder removed by Dr. Boone in [place]. On admission TB 0.5, AST 138, ALT 169, alkaline phosphatase 98, lipase >1800, amylase 1823. CT A/P showed distended gallbladder with irregular gallbladder wall thickening, common bile duct and pancreatic duct dilation, diffuse periportal edema, peripancreatic fat stranding, wall thickening of the ascending colon. Patient reports feeling "much better" today compared to yesterday. She currently denies nausea or vomiting. Seizures: EGD 07/27/2018 Dr. Collins: Granular mucosa in the esophagus which was biopsied, benign-appearing esophageal stenosis, small hiatal hernia. ERCP 07/27/2019 Dr. Collins: Filling defect noted on cholangiogram, choledocholithiasis found, 6 mm stone removed with balloon extraction and sphincterotomy, CBD was successfully dilated. NSAIDs: None Anticoagulation: None Past Med Surg Social Fam HX - Past Medical History Medical history: arthritis, cancer, thyroid disease Additional medical history: L BREAST CA. HIATAL HERNIA. SALLY CATARACTS. HEMORRHOIDS Psychiatric history: no psych history - Past Surgical History Surgical History: breast surgery, cataract Additional surgical history: HEMORRHOIDECTOMY - back surgery 2014 - thyroid - colonoscopy. L BREAST LUMPECTOMY 2006. SALLY CATARACT SX - Social History Smoking Status: Never smoker Smokeless Tobacco Status: No Alcohol use: occasionally Drug use: none - Family History Mother Living Status: Cause of : alzhemiers Hx Family Cardiac Disorders: Yes (Angina mother) Hx Family Respiratory Disorders: No Hx Family Cancer: Yes (lung father) Hx Family GI Disorders: No Hx Family Genitourinary Disorders: No Hx Family Endocrine Disorder: No Hx Family Musculoskeletal Disorders: No Hx Family Neuromuscular Disorders: No Hx Family Neurologic Disorders: No Hx Family HEENT Disorders: No Hx Family Autoimmune Disorders: No Hx Family Psychosocial Disorders: No - Gastrointestinal Gastrointestinal: Present: as per HPI - Constitutional Constitutional: as per HPI - EENT Eyes: as per HPI Ears: Present: as per HPI Nose, mouth and throat: Present: as per HPI - Cardiovascular Cardiovascular ROS: Present: as per HPI - Respiratory Respiratory IM: Present: as per HPI - Genitourinary Genitourinary: Absent: change in color, Urinary frequency - Neurological ROS Neurological GI: Present: as per HPI - Hematologic/Lymphatic Hematologic/Lymphatic pediatric: Present: as per HPI - Musculoskeletal Musculoskeletal ROS GI: Present: as per HPI - Integumentary Integumentary GI: Present: jaundice - Psychiatric ROS Psychiatric GI: Present: as per HPI - Endocrine Endocrine IM: Present: as per HPI - Constitutional Vitals: Temp Pulse Resp BP Pulse Ox 98.3 F 57 16 150/64 98 07/29/19 10:00 07/29/19 10:00 07/29/19 10:00 07/29/19 10:00 07/29/19 10:00 General appearance: Present: cooperative, A&O X 3, no acute distress, answers questions appropriately - Head Head exam: Present: atraumatic, normocephalic - Eye Eye exam: Present: normal appearance, sclera anicteric - ENT ENT exam: Present: mucous membranes dry - Neck Neck exam general surgery: Present: normal inspection, trachea midline - Respiratory Respiratory exam: Present: CTAB. Absent: rales, rhonchi - Cardiovascular Cardiovascular exam: Present: RRR, +S1, +S2 - GI/Abdominal GI/Abdominal exam: Present: soft, tenderness (RUQ, epigastric, LUQ), no peritoneal signs. Absent: distended, firm, guarding - Rectal Rectal exam: Present: deferred - Extremities Exam Extremities exam: Present: warm - Neurological Exam Neurological exam: Present: no focal deficits - Psychiatric Psychiatric exam: Present: normal affect, normal mood - Skin Skin exam: Present: dry, intact, normal color, warm Results - Labs CBC & Chem 7: 07/29/19 04:05 07/29/19 04:05 Labs: Last Result 07/29/19 04:05 Calcium 8.5 L Entire Visit 07/29/19 07/29/19 04:05 04:05 Hgb 10.6 L Hct 33.7 L Total Bilirubin 0.5 AST 83 H ALT 125 H - Impressions Impressions Chest X-Ray 07/28/19 16:38 IMPRESSION: No acute cardiopulmonary process. D/ / 07/28/2019 17:24:52 Benigno Maldonado MD / lance Interpreting Provider: Benigno Maldonado MD Abdomen/Pelvis CT 07/28/19 16:43 IMPRESSION: 1. Distended gallbladder with irregular gallbladder wall thickening. Consider acute cholecystitis. The common bile duct and pancreatic duct are dilated. There is diffuse periportal edema. Surgical consultation is suggested. Right upper quadrant ultrasound may be helpful for further evaluation. 2. Peripancreatic fat stranding, consider pancreatitis. 3. Small amount of ascites. 4. Wall thickening of the ascending colon. Follow-up colonoscopy is suggested to exclude focal lesion. D/ / 07/28/2019 20:20:52 Alexandr Stoll MD / lance Interpreting Provider: Alexandr Stoll MD Gallbladder Ultrasound 07/29/19 08:00 IMPRESSION: Thickened edematous wall with small amount of fluid and associated stones within the common bile duct. Degree of distention appears less than CT. Gallbladder wall appears somewhat irregular in appearance. Findings concerning for acute cholecystitis. D/ / 07/29/2019 08:46:11 Munir Johnston MD / ailyn Interpreting Provider: Munir Johnston MD Consult Discharge Plan - Plan Referrals: Chelsy Whitten MD [Primary Care Provider] - <Kristie Collins - Last Filed: 07/30/19 08:51> Date of Encounter: 07/29/19 Time of Encounter: 12:00 - Time Spent With Patient Total time spent is greater than 50% in coordination of care (as documented) at patient's floor/unit and/or counseling patient: GI History of Present Illness - Data of Consult Requesting Physician: Satnam Montero MD - Consult Narrative History of present illness: Ms. Khan is a 74 year old female - Constitutional Vitals: Temp Pulse Resp BP Pulse Ox 98.0 F 57 15 99/59 97 07/30/19 07:08 07/30/19 07:08 07/30/19 07:08 07/30/19 07:08 07/30/19 07:08 Results - Labs CBC & Chem 7: 07/30/19 04:40 07/30/19 04:40 Labs: Last Result 07/30/19 04:40 Calcium 8.5 L Entire Visit 07/30/19 07/30/1907/30/19 04:40 04:40 04:40 Hgb 11.3 L Hct 35.9 Total Bilirubin 0.8 AST 39 ALT 88 H Lipase 67 - Impressions Impressions Abdomen/Pelvis CT 07/28/19 16:43 IMPRESSION: 1. Distended gallbladder with irregular gallbladder wall thickening. Consider acute cholecystitis. The common bile duct and pancreatic duct are dilated. There is diffuse periportal edema. Surgical consultation is suggested. Right upper quadrant ultrasound may be helpful for further evaluation. 2. Peripancreatic fat stranding, consider pancreatitis. 3. Small amount of ascites. 4. Wall thickening of the ascending colon. Follow-up colonoscopy is suggested to exclude focal lesion. D/ / 07/28/2019 20:20:52 Alexandr Stoll MD / lance Interpreting Provider: Alexandr Stoll MD Gallbladder Ultrasound 07/29/19 08:00 IMPRESSION: Thickened edematous wall with small amount of fluid and associated stones within the common bile duct. Degree of distention appears less than CT. Gallbladder wall appears somewhat irregular in appearance. Findings concerning for acute cholecystitis. D/ / 07/29/2019 08:46:11 Munir Johnston MD / ailyn Interpreting Provider: Munir Johnston MD - Attending Attestation I have personally performed a face to face evaluation on this patient. I have reviewed and agree with the care plan. History and Exam by me shows: Patient seen per patient abdominal pain is better on examination: Abdomen is soft. Assessment: Patient with post-ERCP pancreatitis. Recommendation: Pain control IV fluid. Patient need her gallbladder removed before discharge
[2019-07-29 11:01] LABS: Lipase 805 Units/L (11-82)
[2019-07-29] MEDS: 0.9 % Sodium Chloride 1,000 ML IVC SCH ×2 (18:08→18:18)
[2019-07-29] MEDS: *HR* Heparin 5,000 UNIT/ML VIAL SQ SCH (18:19)
[2019-07-30] MEDS: Piperacillin/Tazobactam 3.375 GM in 0.9 % Sodium Chloride Mini Bag 100 ML IVPB SCH ×3 (05:05→15:07)
[2019-07-30] MEDS: *HR* Heparin 5,000 UNIT/ML VIAL SQ SCH ×3 (05:05→18:16)
[2019-07-30] MEDS: Pantoprazole 40 MG VIAL IVP SCH ×2 (05:05→18:08)
[2019-07-30] MEDS ORDERED: D5% in Water 1,000 ML IVC PRN ×2 (05:14→13:33)
[2019-07-30] MEDS ORDERED: *HR* Dextrose 50 % in Water (Syg) 50 ML SYRINGE IVP PRN ×2 (05:14→13:33)
[2019-07-30] MEDS ORDERED: Dextrose Gel 15 GM/37.5 ML TUBE PO PRN ×4 (05:14→13:33)
[2019-07-30] MEDS: 0.9 % Sodium Chloride 1,000 ML IVC SCH ×4 (05:14→23:04)
[2019-07-30 05:30] LABS: Basophils # 0.2 K/mcL (0.0-0.2); Basophils % 1.3 %; Eosinophils % 0.1 %; Hematocrit 35.9 % (35.3-44.9); Hemoglobin 11.3 g/dL (11.5-15.4); Immature Granulocytes % 0.7 % (0-4); Lymphocytes # 1.8 K/mcL (0.6-4.6); Lymphocytes % 12.2 %; Mean Corpuscular HGB Conc 31.5 g/dL (31.6-35.5); Mean Corpuscular Hemoglobin 29.5 pg (28.0-33.3); Mean Corpuscular Volume 93.7 fL (83.0-100.0); Mean Platelet Volume 11.1 fL (9.4-12.4); Monocytes # 0.3 K/mcL (0.0-1.3); Neutrophils # 12.4 K/mcL (1.6-8.9); Platelet Count 225 K/mcL (140-400); Red Blood Count 3.83 M/mcL (3.82-4.97); Red Cell Distribution Width 13.2 % (11.5-14.5); Segmented Neutrophils % 83.7 %; White Blood Count 14.8 K/mcL (4.3-11.1)
[2019-07-30 05:46] LABS: Albumin 3.4 g/dL (3.5-5.7); Albumin/Globulin Ratio 1.3 (1.1-2.2); Bilirubin,Direct 0.2 mg/dL (0.0-0.2); Bilirubin,Indirect 0.6 mg/dL (0.0-1.2); Bilirubin,Total 0.8 mg/dL (0.3-1.0); Globulin 2.6 g/dL (2.4-3.5)
[2019-07-30 05:50] LABS: BUN/Creatinine Ratio 22 (6-26); Blood Urea Nitrogen 16 mg/dL (8-23); Calcium 8.5 mg/dL (8.6-10.3); Carbon Dioxide 16 mEq/L (23-29); Chloride 105 mEq/L (98-107); Glucose 60 mg/dL (70-105); Magnesium 1.9 mg/dL (1.6-2.6); Osmolality,Calculated 283 (280-300); Phosphorous 3.4 mg/dL (2.7-4.5); Potassium 3.6 mEq/L (3.5-5.1); Sodium 137 mEq/L (136-145); eGFR For African Americans > 60 (> 60); eGFR For Non-African Americans > 60 (> 60)
--- NOTE | 2019-07-30 08:57 | Internal Med Progress Note ---
Hospitalist Progress Note - Encounter Date of Encounter: 07/30/19 Time of Encounter: 09:00 - Subjective Interval History: No acute events overnight - Exam Vitals: Temp Pulse Resp BP Pulse Ox 98.0 F 57 15 99/59 97 07/30/19 07:08 07/30/19 07:08 07/30/19 07:08 07/30/19 07:08 07/30/19 07:08 Exam: General appearance: Present: A&O X 3, no acute distress Head exam: Present: normocephalic Respiratory exam: Present: CTAB. Absent: accessory muscle use, rales, rhonchi, wheezes Cardiovascular exam: Present: RRR, +S1, +S2. Absent: diastolic murmur, gallop, rubs, systolic murmur GI/Abdominal exam: Soft, NT, ND, +BS Extremities exam: Absent: pedal edema Neurological exam: Alert to person and place - Assessment and Plan (1) Acute cholecystitis Current Visit: Yes Status: Acute Assessment and Plan: Pt comes in with diffuse abdominal pain post ERCP Ct abdomen shows irregular gall bladder wall thickening and ultrasound confirms finding suspicious for cholecystitis Surgery consulted. NPO for cholecystectomy Cholecystectomy planed for today (2) Pancreatitis Current Visit: Yes Status: Acute Assessment and Plan: patient has elevated lipase and abdominal pain post ERCP NPO, IV fluids, pain control. Advance diet as tolerated (3) Choledocholithiasis Current Visit: Yes Status: Acute Assessment and Plan: s/p ERCP on 07/27. CT showed dilated common bile duct and pancreatic duct Per GI no acute intervention (4) DVT prophylaxis Current Visit: Yes Status: Acute Assessment and Plan: Heparin sc - Time Spent with Patient Total time spent is greater than 50% in coordination of care (as documented) at patient's floor/unit and/or counseling patient: Internal Medicine: Result - Labs CBC & Chem 7: 07/30/19 04:40 07/30/19 04:40 Labs: Short CBC 07/30/19 Range/Units 04:40 WBC 14.8 H (4.3-11.1) K/mcL Hgb 11.3 L (11.5-15.4) g/dL Hct 35.9 (35.3-44.9) % Plt Count 225 (140-400) K/mcL Neutrophils # 12.4 H (1.6-8.9) K/mcL BMP 07/29/19 07/30/19 04:05 04:40 Sodium 138 137 Potassium 3.9 D 3.6 Chloride 110 H 105 Carbon Dioxide 23 16 L BUN 14 16 Creatinine 0.80 0.73 Glucose 99 60 L Calcium 8.5 L 8.5 L Liver Function 07/29/19 07/30/19 Range/Units 04:05 04:40 Total Bilirubin 0.5 0.8 (0.3-1.0) mg/dL Direct Bilirubin 0.1 0.2 (0.0-0.2) mg/dL AST 83 H 39 (13-39) Units/L ALT 125 H 88 H (7-52) Units/L Alkaline Phosphatase 88 92 (34-104) Units/L Albumin 3.3 L 3.4 L (3.5-5.7) g/dL - Impressions Impressions Abdomen/Pelvis CT 07/28/19 16:43 IMPRESSION: 1. Distended gallbladder with irregular gallbladder wall thickening. Consider acute cholecystitis. The common bile duct and pancreatic duct are dilated. There is diffuse periportal edema. Surgical consultation is suggested. Right upper quadrant ultrasound may be helpful for further evaluation. 2. Peripancreatic fat stranding, consider pancreatitis. 3. Small amount of ascites. 4. Wall thickening of the ascending colon. Follow-up colonoscopy is suggested to exclude focal lesion. D/ / 07/28/2019 20:20:52 Alexandr Stoll MD / lance Interpreting Provider: Alexandr Stoll MD Gallbladder Ultrasound 07/29/19 08:00 IMPRESSION: Thickened edematous wall with small amount of fluid and associated stones within the common bile duct. Degree of distention appears less than CT. Gallbladder wall appears somewhat irregular in appearance. Findings concerning for acute cholecystitis. D/ / 07/29/2019 08:46:11 Munir Johnston MD / ailyn Interpreting Provider: Munir Johnston MD Consult Discharge Plan - Plan Referrals: Chelsy Whitten MD [Primary Care Provider] - (2) Pancreatitis Qualifiers: Chronicity: acute Pancreatitis type: other Acute pancreatitis complication: unspecified Qualified Code(s): K85.80 - Other acute pancreatitis without necrosis or infection
--- NOTE | 2019-07-30 09:58 | Anesthesia Evaluation PreOp ---
Date of Encounter: 07/30/19 Time of Encounter: 10:42 - Past History Planned Operation: lap catina Cardiac History: Denies any Significant Hx Pulmonary History: Denies Any Significant HX HEAD SWAMPER History: Denies Any Significant HX Other Medical History: Thyroid, Other (pancreatitis s/p ercp, arthritis, breast cancer) Anesthesia History: No Prior Anesthetic Complications, Past Anesthesia (breast, cataract, hiatal hernia, hemorroids, back surgery,) : No Alcohol Use: occasionally Drug use: none Medications and Allergies Indomethacin 25 mg PO BID PRN 12/10/15 [History] Biotin 1 mg PO DAILY 07/28/19 [History] Levothyroxine Sodium [Levoxyl] 175 mcg PO DAILY 07/28/19 [History] Loratadine [Allergy Relief] 10 mg PO DAILY 07/28/19 [History] Omeprazole [PriLOSEC] 40 mg PO DAILY 07/28/19 [History] Allergy/AdvReac Type Severity Reaction Status Date / Time diphenhydramine Allergy Hives Verified 07/29/19 00:43 [From Benadryl] latex Allergy Hives Verified 07/17/15 08:28 adhesive tape AdvReac Rash Verified 07/29/19 00:43 - Meds/Allergy Pre-op Review Medications Reviewed: Yes Allergies Reviewed: Yes Beta Blockers on Current Med List: No Anesthesia Results - Labs 07/30/19 04:40 07/30/19 04:40 - Imaging EKG: report reviewed (sinus ananya) Anesthesia Exam Vital Signs/O2 Sat, Most Current Temp Pulse Resp BP Pulse Ox 98.0 F 57 15 99/59 97 07/30/19 07:08 07/30/19 07:08 07/30/19 07:08 07/30/19 07:08 07/30/19 07:08 - HEENT Pupil (Motor): Pupils equal, EOMI Mallampati: II Denture Type: Upper: Partial Oral Opening: Greater than 3 - HEAD SWAMPER LOC: Oriented HEAD SWAMPER Motor: Normal RUE, Normal LUE, Normal RLE, Normal LLE, Normal Face HEAD SWAMPER Sensory: Normal: RUE, LUE, RLE, LLE, Face - Cardiac Rhythm: Regular Murmur: None JVD: No - Pulmonary Breath Sounds: bilateral Clear Respiratory Effort: Symmetrical Anesthesia Assess/Plan ASA Score: 3 Level of consciousness: Cooperative, Oriented Anesthetic Plan: General Monitoring Plan: Standard Monitors Recovery Plan: PACU
[2019-07-30] MEDS: Loratadine 10 MG TABLET PO SCH (10:22)
[2019-07-30] MEDS ORDERED: *HR* FentaNYL (PF) 100 MCG/2 ML VIAL ONE (10:37)
[2019-07-30] MEDS ORDERED: Dexamethasone 4 MG/ML VIAL ONE (10:40)
[2019-07-30] MEDS ORDERED: *HR* Propofol 200 MG/20 ML VIAL IVP ONE (10:40)
[2019-07-30] MEDS ORDERED: *HR* Rocuronium Bromide 50 MG/5 ML VIAL ONE (10:40)
[2019-07-30] MEDS ORDERED: Ondansetron 4 MG/2 ML VIAL ONE (10:40)
[2019-07-30] MEDS ORDERED: Lidocaine -MPF 2% 2 ML VIAL ONE (10:40)
[2019-07-30] MEDS ORDERED: *HR* Promethazine 25 MG/ML VIAL IVP PRN ×2 (10:43→13:33)
[2019-07-30] MEDS ORDERED: *HR* Meperidine 25 MG/ML SYRINGE IVP PRN (10:43)
[2019-07-30] MEDS ORDERED: Lidocaine HCL 4 ML Topical Solution (Laryng-O-Jet Kit Sterile Pak) TP ONE (10:45)
[2019-07-30] MEDS ORDERED: Ringers Solution, Lactated 1,000 ML IVC SCH ×2 (10:45→13:33)
[2019-07-30] MEDS ORDERED: EPHEDrine 50 MG/ML VIAL ONE (11:18)
[2019-07-30] MEDS ORDERED: Neostigmine Methylsulfate 3 MG/3 ML SYRINGE ONE (12:27)
--- NOTE | 2019-07-30 12:40 | Operative Note ---
Date of procedure: 07/30/19 Pre-op diagnosis: acute cholecystitis with cholelithiasis Post-op diagnosis: same Procedure: Laparoscopic cholecystectomy Complications: none Anesthesia: GETA Surgeon: Ant Olivarez Was there an home health assistant present: Yes Monitoring Engineer: Andreia Uriarte Estimated blood loss (cc): 50 Specimen: gallbladder Condition: stable Disposition: PACU Procedure in Detail: This 74 year-old female was taken to the operating room and placed in the supine position. The anterior abdominal wall is prepped and draped in the usual sterile fashion. A 1-2 cm curvilinear incision is made in the infraumbilical area and subcutaneous tissue was dissected down to anterior rectus fascia. Fascia is grasped with a Avis clamp, stay sutures were placed in the fascia is divided. Posterior rectus fascia and peritoneum were elevated and divided in the same manner. A Gaby port is inserted. Under direct visualization after the injection of 0.5% Marcaine the x3 5 mm ports are inserted in the right subcostal space under direct visualization. Exploration of the intraabdominal cavity reveals an abnormal gallbladder. The patient is placed in reverse Trendelenburg position and rotated to the left. The gallbladder is grasped and retracted in cephalad direction. It is also grasped and retracted in the lateral direction. The cystic duct was carefully identified circumferentially dissected doubly clipped and divided between clips. The cystic artery is carefully identified and circumferentially dissected and divided between clips. The gallbladder is dissected off the liver bed using electrocautery. Hemostasis was perfected using electrocautery. The gallbladder is removed from the intra- abdominal cavity using an Endo Catch bag. Copious irrigation is carried out in the intra-abdominal cavity, Lozano's pouch and the gallbladder fossa. The pneumoperitoneum was allowed to escape under direct visualization. The ports were removed also under direct visualization. The fascia at the infraumbilical incision is closed using 0 Vicryl sutures. All skin incisions are closed using 4-0 Monocryl subcuticular stitches. Steri-Strips are placed. Sterile dressing is placed. Patient tolerated procedure well was taken to the PACU in good condition.
[2019-07-30] MEDS: *HR* HYDROmorphone (PF) 1 MG/ML SYRINGE IVP PRN ×2 (13:00→13:10)
[2019-07-30] MEDS ORDERED: traMADol 50 MG TABLET PO PRN (13:33)
[2019-07-30] MEDS ORDERED: Ondansetron 4 MG/2 ML VIAL IVP PRN (13:33)
[2019-07-30] MEDS ORDERED: Ketorolac 15 MG/ML VIAL IVP PRN (13:33)
[2019-07-30] MEDS ORDERED: Acetaminophen 325 MG TABLET PO PRN (13:33)
[2019-07-30] MEDS: *HR* OxyCODONE Immed Rel 5 MG TABLET PO PRN (23:07)
--- NOTE | 2019-07-31 00:19 | Electrocardiograph Report ---
[facility] [employer] [facility] Test Date: 2019-07-28 Pat Name: Kristan Khan Department: [id number] Room: 3A34 Gender: F Deputy Clerk Of Court: : 1945 Requested By: [id number] Order Number: [id number] Reading MD: Jaylan Foreman Measurements Intervals [place] Rate: 49 P: 34 AK: 184 QRS: 15 QRSD: 88 T: 32 QT: 458 QTc: 414 Interpretive Statements Sinus bradycardia Electronically Signed On 07-31-2019 0:17:29 EDT by Jayaln Foreman
[2019-07-31] MEDS: Piperacillin/Tazobactam 3.375 GM in 0.9 % Sodium Chloride Mini Bag 100 ML IVPB SCH ×2 (00:40→08:05)
[2019-07-31] MEDS: *HR* Heparin 5,000 UNIT/ML VIAL SQ SCH (06:11)
[2019-07-31] MEDS: Pantoprazole 40 MG VIAL IVP SCH (06:12)
--- NOTE | 2019-07-31 07:59 | Internal Med Progress Note ---
Hospitalist Progress Note - Encounter Date of Encounter: 07/31/19 Time of Encounter: 09:00 - Subjective Interval History: s/p cholecystectomy - Exam Vitals: Temp Pulse Resp BP Pulse Ox 98.6 F 56 18 98/60 92 07/31/19 06:56 07/31/19 06:56 07/31/19 06:56 07/31/19 06:56 07/31/19 06:56 Exam: General appearance: Present: A&O X 3, no acute distress Head exam: Present: normocephalic Respiratory exam: Present: CTAB. Absent: accessory muscle use, rales, rhonchi, wheezes Cardiovascular exam: Present: RRR, +S1, +S2. Absent: diastolic murmur, gallop, rubs, systolic murmur GI/Abdominal exam: Soft, NT, ND, +BS Extremities exam: Absent: pedal edema Neurological exam: Alert to person and place - Assessment and Plan (1) Acute cholecystitis Current Visit: Yes Status: Acute Assessment and Plan: Pt comes in with diffuse abdominal pain post ERCP Ct abdomen shows irregular gall bladder wall thickening and ultrasound confirms finding suspicious for cholecystitis Surgery consulted. s/p cholecystectomy in last 24hrs. tolerated procedure with no acute complications Diet advanced (2) Pancreatitis Current Visit: Yes Status: Acute Assessment and Plan: patient has elevated lipase and abdominal pain post ERCP NPO, IV fluids, pain control. Advance diet as tolerated (3) Choledocholithiasis Current Visit: Yes Status: Acute Assessment and Plan: s/p ERCP on 07/27. CT showed dilated common bile duct and pancreatic duct Per GI no acute intervention (4) DVT prophylaxis Current Visit: Yes Status: Acute Assessment and Plan: Heparin sc - Time Spent with Patient Total time spent is greater than 50% in coordination of care (as documented) at patient's floor/unit and/or counseling patient: Internal Medicine: Result - Labs CBC & Chem 7: 07/31/19 07:55 07/31/19 07:55 Consult Discharge Plan - Plan Instructions: Laparoscopic Cholecystectomy (DC) Additional Instructions: May shower. Remove bandaids. Leave steri strips in place. No heavy lifting or straining >25 lbs. No driving until not taking pain meds. F/U with [facility] clinic in 2 weeks. Call [phone] for appt. Referrals: Ant Ling [Partnered Physician] - Chelsy Whitten MD [Primary Care Provider] - Prescriptions: OxyCODONE/APAP 5/325 [Percocet 5/325 MG] 1 each PO Q6HR PRN 5 Days #20 tablet PRN Reason: Pain Ondansetron HCl [Zofran] 4 mg PO Q8HR PRN #20 tab PRN Reason: Nausea And Vomiting (2) Pancreatitis Qualifiers: Chronicity: acute Pancreatitis type: other Acute pancreatitis complication: unspecified Qualified Code(s): K85.80 - Other acute pancreatitis without necrosis or infection
[2019-07-31 08:32] LABS: Basophils % 0.3 %; Eosinophils % 0.1 %; Hematocrit 31.6 % (35.3-44.9); Immature Granulocytes % 0.8 % (0-4); Lymphocytes # 1.9 K/mcL (0.6-4.6); Lymphocytes % 13.5 %; Mean Corpuscular HGB Conc 31.6 g/dL (31.6-35.5); Mean Corpuscular Hemoglobin 29.9 pg (28.0-33.3); Mean Corpuscular Volume 94.6 fL (83.0-100.0); Mean Platelet Volume 11.2 fL (9.4-12.4); Monocytes # 0.2 K/mcL (0.0-1.3); Monocytes % 1.6 %; Neutrophils # 11.7 K/mcL (1.6-8.9); Platelet Count 214 K/mcL (140-400); Red Blood Count 3.34 M/mcL (3.82-4.97); Red Cell Distribution Width 13.5 % (11.5-14.5); Segmented Neutrophils % 83.7 %
[2019-07-31 08:54] LABS: BUN/Creatinine Ratio 16 (6-26); Blood Urea Nitrogen 12 mg/dL (8-23); Calcium 7.9 mg/dL (8.6-10.3); Carbon Dioxide 23 mEq/L (23-29); Chloride 104 mEq/L (98-107); Glucose 108 mg/dL (70-105); Magnesium 1.8 mg/dL (1.6-2.6); Osmolality,Calculated 280 (280-300); Phosphorous 2.4 mg/dL (2.7-4.5); Potassium 3.8 mEq/L (3.5-5.1); Sodium 135 mEq/L (136-145); eGFR For African Americans > 60 (> 60); eGFR For Non-African Americans > 60 (> 60)
[2019-07-31 08:55] LABS: Albumin 3.1 g/dL (3.5-5.7); Albumin/Globulin Ratio 1.3 (1.1-2.2); Bilirubin,Direct 0.1 mg/dL (0.0-0.2); Bilirubin,Indirect 0.6 mg/dL (0.0-1.2); Bilirubin,Total 0.7 mg/dL (0.3-1.0); Globulin 2.3 g/dL (2.4-3.5); Total Protein 5.4 g/dL (6.4-8.9)
[2019-07-31] MEDS ORDERED: Loratadine 10 MG TABLET PO SCH (09:00)
--- NOTE | 2019-07-31 09:57 | Discharge Summary ---
Date of Encounter: 07/31/19 Time of Encounter: 16:03 - Discharge Diagnosis (1) Acute cholecystitis Priority: Primary Status: Acute Assessment and Plan: 74 year old woman who was seen by the GI service with the initial complaint of dysphagia but also had complaints of RUQ pain and seen to have choledocolithiasis on imaging. She underwent an ERCP yesterday where a benign- appearing, intrinsic Schatzki ring was found that the GE junction causing stenosis; choledocolithiasis was found and a 6mm stone extracted with biliary sphincterotomy and CBD dilatation performed. She says after the procedure she had a significant amount of nausea and discomfort but when she went home, she developed diffuse abdominal pain. She continued to feel nauseated and had multiple vomiting episodes. She says the pain severity was high enough to consider coming to the ER last night but decided to take some pain medications that were prescribed to her without any relief noted. She says today the pain, nausea and vomiting continued, stating that the pain radiated into her back and up her chest. CT scan was done and showed a distended gallbladder with a regular gallbladder wall thickening, CBD and pancreatic duct dilation and peripancreatic fat stranding. Lab work showed her leukocyte count of 13.1, AST 138, ALP 169, amylase and lipase >1800 She was assessed with post ERCP gallstone pancreatitis and acute cholecystitis. She was kept NPO and started on IVf fluids. CT abdomen showed irregular gall bladder wall thickening and ultrasound confirms finding suspicious for cholecystitis. Surgery was consulted and patient had a cholecystectomy in last 24hrs. She tolerated procedure with no acute complications. She was started on a full liquid diet and advanced to a regular diet which she tolerated. She was discharged in a stable condition. 35 minutes was spent discharging this patient (2) Pancreatitis Priority: Primary Status: Acute Qualifiers: Chronicity: acute Pancreatitis type: other Acute pancreatitis complication: unspecified Qualified Code(s): K85.80 - Other acute pancreatitis without necrosis or infection (3) Choledocholithiasis Priority: Primary Status: Acute (4) DVT prophylaxis Priority: Primary Status: Acute Hospital course: Ms. Khan is a 74 year old female - Time Spent with Patient Total time spent providing and/or coordinating discharge services: - Discharge Medications Prescriptions: New OxyCODONE/APAP 5/325 [Percocet 5/325 MG] 1 each PO Q6HR PRN 5 Days #20 tablet PRN Reason: Pain Ondansetron HCl [Zofran] 4 mg PO Q8HR PRN #20 tab PRN Reason: Nausea And Vomiting Continued Indomethacin 25 mg PO BID PRN PRN Reason: pain/inflamation Biotin 1 mg PO DAILY Levothyroxine Sodium [Levoxyl] 175 mcg PO DAILY Loratadine [Allergy Relief] 10 mg PO DAILY Omeprazole [PriLOSEC] 40 mg PO DAILY Home Medications: Indomethacin 25 mg PO BID PRN 12/10/15 [History] Biotin 1 mg PO DAILY 07/28/19 [History] Levothyroxine Sodium [Levoxyl] 175 mcg PO DAILY 07/28/19 [History] Loratadine [Allergy Relief] 10 mg PO DAILY 07/28/19 [History] Omeprazole [PriLOSEC] 40 mg PO DAILY 07/28/19 [History] Ondansetron HCl [Zofran] 4 mg PO Q8HR PRN #20 tab 07/31/19 [Rx] OxyCODONE/APAP 5/325 [Percocet 5/325 MG] 1 each PO Q6HR PRN 5 Days #20 tablet 07/31/19 [Rx] Allergies/Adverse Reactions: Allergy/AdvReac Type Severity Reaction Status Date / Time diphenhydramine Allergy Hives Verified 07/29/19 00:43 [From Benadryl] latex Allergy Hives Verified 07/17/15 08:28 adhesive tape AdvReac Rash Verified 07/29/19 00:43 Date of admission: 07/28/19 21:18 Primary care physician: Chelsy Whitten MD Consults: 07/28/19 22:04 Consult to Gastroenterology [CONS] Routine Consulting Provider: Gastroenterology Williams Reason for Consult: Post ERCP pancreatitis Call Completed: No 07/29/19 09:51 Consult to Surgery [CONS] Routine Consulting Provider: Acute Care Surgery Reason for Consult: acute cholecystitis Call Completed: Yes - Constitutional Vitals: Temp Pulse Resp BP Pulse Ox 98.6 F 56 18 98/60 92 07/31/19 06:56 07/31/19 06:56 07/31/19 06:56 07/31/19 06:56 07/31/19 06:56 Exam: General appearance: Present: A&O X 3, no acute distress Head exam: Present: normocephalic Respiratory exam: Present: CTAB. Absent: accessory muscle use, rales, rhonchi, wheezes Cardiovascular exam: Present: RRR, +S1, +S2. Absent: diastolic murmur, gallop, rubs, systolic murmur GI/Abdominal exam: Soft, NT, ND, +BS Extremities exam: Absent: pedal edema Neurological exam: Alert to person and place - Patient Status Disposition: Home, Self-Care Condition: Good - Discharge Instructions Instructions: Laparoscopic Cholecystectomy (DC) Follow Up With: Ant Ling [Partnered Physician] - Chelsy Whitten MD [Primary Care Provider] - Additional Instructions: May shower. Remove bandaids. Leave steri strips in place. No heavy lifting or straining >25 lbs. No driving until not taking pain meds. F/U with [facility] clinic in 2 weeks. Call [phone] for appt.
--- NOTE | 2019-07-31 10:21 | AcuteCareSurgery Progress Note ---
Date of Encounter: 07/31/19 Time of Encounter: 08:00 - Assessment and Plan (1) Acute cholecystitis Current Visit: Yes Status: Acute POD#1 lap catina. Post-op condition is satisfactory for DC home today if OK with hospitalist. (2) Pancreatitis Current Visit: Yes Status: Acute Qualifiers: Chronicity: acute Pancreatitis type: other Acute pancreatitis complication: unspecified Qualified Code(s): K85.80 - Other acute pancreatitis without necrosis or infection (3) S/P laparoscopic cholecystectomy Current Visit: Yes Status: Acute Subjective Patient reports: no new complaints, feels better, still having pain, pain is less, tolerating liquids well, flatus, no bowel movement, afebrile Objective Vital Signs - Last 8 Hours Temp Pulse Resp BP Pulse Ox 07/31/19 06:56 98.6 F 56 18 98/60 92 07/31/19 03:52 98.5 F 55 16 103/57 92 Intake and Output 07/30/19 07/31/19 07/31/19 23:59 07:59 15:59 Intake Total 1580 / 1780 1354 / 1354 Output Total 0 / 800 800 / 800 Balance 1580 / 1730 1354 / 554 -800 / 554 Intake: IV Fluids 1100 / 1300 954 / 954 0.9 % Sodium Chloride 1,000 ML 1000 / 1000 854 / 854 @ 125 mls/hr IVC .Q8H [facility]KA Rx#: [id number] Zosyn 3.375 GM In 0.9 % Sodium 100 / 100 100 / 100 Chloride (Mini-Bag +) 100 ML @ 25 mls/hr IVPB Q8HR [facility]KA Rx#: [id number] Oral 480 / 480 400 / 400 Output: Urine 0 / 800 800 / 800 Other: Meal Dinner Percent of Meal Consumed 100% # Voids 1 Weight 69.5 kg Patient Weight 07/31/19 23:59 Weight 69.5 kg - General physical appearance no distress, moderate pain (expected post-op) - Eyes PERRL, normal ocular movement - ENT normal mucosa, no congestion - Neck Neck exam: trachea midline, no venous distension - Respiratory normal respiratory effort, clear to auscultation - Cardiovascular Cardiovascular exam: Present: RRR. Absent: JVD - Abdomen Abdomen: Present: soft, tender Abdominal Tenderness: RUQ (as expected post-op) - Incision Incision: Present: clean and dry, intact - Neurologic CN 2-12 grossly intact, normal coordination - Musculoskeletal normal posture - Psychiatric oriented to time, oriented to person, oriented to place - Labs 07/31/19 07:55 07/31/19 07:55 Diabetes panel 07/31/19 07/31/19 Range/Units 07:55 07:55 Sodium 135 L (136-145) mEq/L Potassium 3.8 (3.5-5.1) mEq/L Chloride 104 (98-107) mEq/L Carbon Dioxide 23 (23-29) mEq/L BUN 12 (8-23) mg/dL Creatinine 0.76 (0.60-1.20) mg/dL Glucose 108 H (70-105) mg/dL Calcium 7.9 L (8.6-10.3) mg/dL AST 56 H (13-39) Units/L ALT 79 H (7-52) Units/L Alkaline Phosphatase 73 (34-104) Units/L Albumin 3.1 L (3.5-5.7) g/dL Calcium panel 07/31/19 07/31/19 Range/Units 07:55 07:55 Calcium 7.9 L (8.6-10.3) mg/dL Phosphorus 2.4 L (2.7-4.5) mg/dL Albumin 3.1 L (3.5-5.7) g/dL Pituitary panel 07/31/19 Range/Units 07:55 Sodium 135 L (136-145) mEq/L Potassium 3.8 (3.5-5.1) mEq/L Chloride 104 (98-107) mEq/L Carbon Dioxide 23 (23-29) mEq/L BUN 12 (8-23) mg/dL Creatinine 0.76 (0.60-1.20) mg/dL Glucose 108 H (70-105) mg/dL Calcium 7.9 L (8.6-10.3) mg/dL Adrenal panel 07/31/19 07/31/19 Range/Units 07:55 07:55 Sodium 135 L (136-145) mEq/L Potassium 3.8 (3.5-5.1) mEq/L Chloride 104 (98-107) mEq/L Carbon Dioxide 23 (23-29) mEq/L BUN 12 (8-23) mg/dL Creatinine 0.76 (0.60-1.20) mg/dL Glucose 108 H (70-105) mg/dL Calcium 7.9 L (8.6-10.3) mg/dL Total Bilirubin 0.7 (0.3-1.0) mg/dL AST 56 H (13-39) Units/L ALT 79 H (7-52) Units/L Alkaline Phosphatase 73 (34-104) Units/L Albumin 3.1 L (3.5-5.7) g/dL Consult Discharge Plan - Plan Instructions: Laparoscopic Cholecystectomy (DC) Additional Instructions: May shower. Remove bandaids. Leave steri strips in place. No heavy lifting or straining >25 lbs. No driving until not taking pain meds. F/U with [facility] clinic in 2 weeks. Call [phone] for appt. Referrals: Chelsy Whitten MD [Primary Care Provider] - Ant Ling [Partnered Physician] - Prescriptions: OxyCODONE/APAP 5/325 [Percocet 5/325 MG] 1 each PO Q6HR PRN 5 Days #20 tablet PRN Reason: Pain Ondansetron HCl [Zofran] 4 mg PO Q8HR PRN #20 tab PRN Reason: Nausea And Vomiting
[2019-07-31 11:07] VITALS: BP 124/60
[2019-07-31] MEDS: *HR* OxyCODONE Immed Rel 5 MG TABLET PO PRN (14:18)
== END 2019-07-31 16:33 | disposition home or self-care (01) | DRG 417 ==
LOC: EMEROOARM 16:12 → 3ANU 21:18
PROVIDERS: ADMIT Internal Medicine; ATTEND Student in an Organized Health Care Education/Training Program